=== PATIENT | male | born 1995 | race Two or more races ===

== ENCOUNTER 2024-09-23 19:35 | Emergency (ER) | payer BC ==
[~2024-09-23] VITALS: Ht 185.4 cm; Wt 73.4 kg
[2024-09-23 23:21] VITALS: BP 114/71; TEMP 99.1; O2SAT 97
== END 2024-09-23 23:23 | disposition home or self-care (01) ==
LOC: M ED 19:35
DX: I80.01 Phlebitis and thrombophlebitis of superficial vessels of right lower extremity (principal); F17.200 Nicotine dependence, unspecified, uncomplicated; F12.10 Cannabis abuse, uncomplicated; F10.10 Alcohol abuse, uncomplicated